=== PATIENT | male | born 1980 | race Caucasian/White ===

== ENCOUNTER 2022-05-26 11:35 | Emergency (ER) | payer MEDICAID, MEDICARE, SELFPAY ==
[2022-05-26 11:37] VITALS: BP 138/77; PULSE 87; RESP 16; TEMP 36.4; O2SAT 99; BMI 24.0
[2022-05-26 12:29] LABS: Bacteria 0 SEEN /hpf (None Seen); Mucous, Urine 0 SEEN /hpf (<or=2+); Red Blood Cells-Urine 0 SEEN /hpf (0-5); Squamous Epithelial Cells - UA 0 SEEN /hpf (0-5); White Blood Cells 0 SEEN /hpf (0-5)
[2022-05-26 12:32] LABS: Color, Urine Yellow (Yellow); Glucose, Dipstick Normal (Normal); Ketone-Dipstick Negative (Negative); Leukocyte Esterase-Dipstick Negative /ul (Negative); Nitrite-Dipstick Negative (Negative); Occult Blood-Urine Negative /ul (Negative); Protein-Dipstick Negative (Negative); Urine Bilirubin Dipstick Negative (Negative); Urine Clarity Clear (Clear); Urine Urobilinogen Normal (Normal)
--- NOTE | 2022-05-26 12:53 | EDS_ITS ---
HPI History of Present Illness Chief Complaint: Flank Pain Narrative Narrative: 42-year-old male presenting with right flank pain. He states this started today. He does not have any nausea or vomiting with it. He states the pain is sharp in the right flank. It radiates around to right side to the abdomen. He states that it comes in waves. He states his urine has been a little bit pinkish. No history of kidney stones. No fever or chills. No diarrhea or constipation. He denies any injury to his back. PFSH [facility] Medical History Kidney calculi Allergy/AdvReac Type Severity Reaction Status Date / Time bupropion [From Wellbutrin] Allergy PT UNSURE Verified 05/26/22 11:36 OF REACTION buspirone [From BuSpar] Allergy PT UNSURE Verified 05/26/22 11:36 OF REACTION lamotrigine [From Lamictal] Allergy PT UNSURE Verified 05/26/22 11:36 OF REACTION lithium Allergy Other Verified 05/26/22 11:36 Family History adopted Surgical History History of facial surgery Social History Smoking Status: Current every day smoker tobacco type: cigarettes ROS ROS ED Constitutional Constitutional ED: Denies chills or fever(s) Eyes Eyes: Denies change in vision or diplopia ENT ENT ED: Denies rhinorrhea or sore throat Cardiovascular Cardiovascular: Denies chest pain or palpitations Respiratory/Chest Respiratory/Chest: Denies cough or dyspnea Gastrointestinal Gastrointestinal: Denies abdominal pain, nausea or vomiting Genitourinary Genitourinary ED: Denies dysuria or hematuria Musculoskeletal Musculoskeletal: Reports back pain Integumentary Denies abscess or Abrasions Neurologic Neurologic: Denies headache(s) or paresthesias Psychiatric Psychiatric: Denies anxiety or depression EXAM Physical Exam Const Vital Signs: 05/26/22 11:37 Temperature 97.5 F L Temperature Source Temporal Pulse Rate 87 Respiratory Rate 16 Blood Pressure 138/77 H Blood Pressure Mean 97 Pulse Ox 99 Oxygen Delivery Method Room Air Positive well nourished General Appearance ED: Negative for pallor HEENT Reports moist mucous membranes Eyes PERRL and EOMs intact bilaterally Neck no lymphadenopathy and supple Chest Wall inspection of chest normal and palpation of chest normal Resp normal respiratory effort and clear to auscultation bilaterally GI normal to inspection, nondistended, normoactive bowel sounds Back/Spine General Back: CVA tenderness right Extremity normal to inspection Neuro oriented x3 and CN's II-XII intact bilaterally Sensorium / Orientation: alert Psych mental status grossly normal Skin no rashes or lesions noted General Skin Exam: Negative for jaundice or pallor MDM MDM MDM Narrative Medical decision making narrative: Patient presenting with right flank pain. No history of kidney stones. He denies any trauma. He does note that his urine has been slightly pinkish. Urinalysis today does not show any evidence of infection or occult blood. Patient currently is not in any pain and is amenable to Toradol. He states he does not need anything for nausea. I will obtain blood work and a francisca study to rule out kidney stone because he does have CVA tenderness on exam. CBC CBC within normal limits. BMP does not show any evidence of kidney dysfunction. Urinalysis negative for infection or occult blood. Patient did state that he was in pain after I evaluated him and returning from CT. He was given morphine and Zofran. Ultimately his work-up is normal. I suspect this pain is likely musculoskeletal given his work-up does not show a kidney stone. Patient trini led this. He muscle lectures and anti-inflammatories. Impression: 1. Right flank pain 2. Back strain Lab Data Attestation: I reviewed the patient's lab results. Labs: Laboratory Results - last 24 hr 05/26/22 05/26/22 05/26/22 11:49 11:49 11:55 WBC 6.2 RBC 5.06 Hgb 15.4 Hct 46.1 MCV 91.1 MCH 30.4 MCHC 33.4 RDW Std Deviation 42.2 RDW Coeff of Lani 12.6 Plt Count 297 MPV 9.9 Immature Gran % (Auto) 0.300 Neut % (Auto) 62.4 Lymph % (Auto) 27.6 [place] % (Auto) 8.7 Eos % (Auto) 0.5 Baso % (Auto) 0.5 Absolute Neuts (auto) 3.9 Absolute Lymphs (auto) 1.71 Nucleated RBC % 0 Sodium 140 Potassium 3.6 Chloride 108 H Carbon Dioxide 28.0 Anion Gap 4 L BUN 9 Creatinine 0.92 Estim Creat Clear Calc 87.58 Est GFR (MDRD) Af Amer 116 Est GFR (MDRD) Non-Af 96 BUN/Creatinine Ratio 9.8 L Glucose 94 Calcium 9.4 Urine Color Yellow Urine Clarity Clear Urine pH 6.0 Ur Specific [place] 1.010 Urine Protein Negative Urine Glucose (UA) Normal Urine Ketones Negative Urine Occult Blood Negative Urine Nitrite Negative Urine Bilirubin Negative Urine Urobilinogen Normal Ur Leukocyte Esterase Negative Urine RBC 0 SEEN Urine WBC 0 SEEN Ur Squamous Epith Cells 0 SEEN Urine Bacteria 0 SEEN Urine Mucus 0 SEEN Radiography Diagnostic Testing: Clinical Impression(s) from Imaging Studies Abdomen/Pelvis CT 05/26/22 12:53 IMPRESSION: 1. No radiopaque stones or hydronephrosis or hydroureter is present. 2. Small right testicular hydrocele noted as well as a small calcification in the scrotal wall. Electronically Signed: Fede Lopez MD at 13:34 EST Reading Location ID and State: [address] [place] [address] , Service support , Discharge Plan Triage Chief Complaint: Flank Pain ED Provider: Magdi Pratt Dx/Rx/DC Orders Primary Care Provider: Care Physician,No Primary Referrals: Care Physician,No Primary [Primary Care Provider] -
--- NOTE | 2022-05-26 12:53 | CT_ITS ---
STUDY: CT ABDOMEN AND PELVIS WITHOUT CONTRAST REASON FOR EXAM: Male, 42 years old. Kidney Stone, RIGHT FLANK PAIN RADIATION DOSAGE (If Supplied By Facility): CTDIvol = ( 6.05 ) mGy, DLP = ( 287.10 ) mGycm TECHNIQUE: Transaxial images were obtained from the dome of the diaphragm to the symphysis pubis without oral contrast, and without intravenous contrast. Sagittal and coronal images were reconstructed. Individualized dose optimization techniques were used for this CT. COMPARISON: None. FINDINGS: The visualized lung bases are unremarkable. The visualized portions of the heart are within normal limits. Normal liver. Normal gallbladder and extrahepatic biliary system. Normal spleen. Normal pancreas. Normal bilateral adrenal glands. Normal right kidney. Normal left kidney. No radiopaque stones or hydronephrosis or hydroureter is present. Normal visualized stomach. Normal small intestine. Normal colon. The appendix is visualized and appears normal. A moderate amount of stool is present throughout the colon. Normal abdominal aorta. Normal inferior vena cava. Normal retroperitoneum. Normal urinary bladder. There are prostatic calcifications. Normal abdominal wall. Normal osseous structures. Small right testicular hydrocele noted as well as a small calcification in the scrotal wall. CT/Abdomen/Pelvis without Cont IMPRESSION: 1. No radiopaque stones or hydronephrosis or hydroureter is present. 2. Small right testicular hydrocele noted as well as a small calcification in the scrotal wall. Electronically Signed: Fede Lopez MD at 13:34 EST ,
[2022-05-26] MEDS: Ketorolac 15 MG/ML Vial IV (13:05)
[2022-05-26 13:10] LABS: Absolute Lymphocyte Count 1.71 X10^3/uL (0.83-4.51); Absolute Neutrophil Count 3.9 X10^3/uL (2.0-7.7); Basophil# 0.03 X10^3/uL; Basophil% 0.5 % (0-1); Eosinophil# 0.03 X10^3/uL; Eosinophils% 0.5 % (0-5); Hematocrit 46.1 % (40-54); Hemoglobin 15.4 g/dL (13.0-16.5); Lymphocyte # 1.71 X10^3/ul (0.83-4.51); Lymphocyte % 27.6 % (19-41); Mean Corp Hgb Conc 33.4 g/dL (32-36); Mean Corpuscular Hgb 30.4 pg (27.0-32.0); Mean Corpuscular Volume 91.1 fL (80-94); Mean Platelet Vol. 9.9 fl (6.2-12.0); Monocyte# 0.54 X10^3/uL; Monocyte% 8.7 % (0-10); NRBC Flagged by Analyzer 0 % (0-5); Neutrophil # 3.87 X10^3/uL (2.7-7.7); Neutrophil % 62.4 % (47-70); Platelet Count 297 K/mm3 (150-450); RBC Distribution Width CV 12.6 % (11.6-14.6); RBC Distribution Width SD 42.2 fl (35.1-43.9); Red Blood Count 5.06 M/mm3 (4.6-6.2); White Blood Count 6.2 K/mm3 (4.4-11.0)
[2022-05-26] MEDS: Morphine 4 MG/ML Syringe IV (13:25)
[2022-05-26] MEDS: Ondansetron 4 MG/2 ML Vial IV (13:25)
[2022-05-26 13:32] LABS: Anion Gap 4 (5-15); BUN 9 mg/dL (7-18); BUN/Creat Ratio 9.8 RATIO (10-20); Calcium,Total 9.4 mg/dL (8.5-10.1); Chloride 108 mmol/L (98-107); Creatinine, Serum 0.92 mg/dL (0.70-1.30); EST Glomerular Filtration Rate 96 mL/min (>60); Est Glom Filt Rate - Afr Amer 116 mL/min (>60); Estimated Creatinine Clearance 87.58 ml/min; Glucose 94 mg/dL (74-106); Potassium 3.6 mmol/L (3.5-5.1); Sodium Level 140 mmol/L (136-145)
--- NOTE | 2022-05-26 15:28 | ED.RN ---
LMOM to let Pramod know he can come pick the patient up [phone]
[2022-05-26 15:29] VITALS: O2SAT 99
== END 2022-05-26 15:31 | disposition home or self-care (01) ==
PROVIDERS: Emergency Provider Student in an Organized Health Care Education/Training Program; Visit Provider Student in an Organized Health Care Education/Training Program
DX: R10.9 Unspecified abdominal pain (principal); S39.012A Strain of muscle, fascia and tendon of lower back, initial encounter; F17.210 Nicotine dependence, cigarettes, uncomplicated; X58.XXXA Exposure to other specified factors, initial encounter
CPT/HCPCS: 74176; 80048; 81001; 85025; 96374; 96375; 99283; J7030; A4216; J2405